=== PATIENT | female | born 1950 | race Caucasian/White ===

== ENCOUNTER 2020-10-06 12:24 | Emergency (ER) | payer OTHER ==
[~2020-10-06] VITALS: Ht 165.1 cm; Wt 66.2 kg
--- NOTE | 2020-10-06 12:40 | NUR ---
BIB [facility] FROM HOME, R ANKLE PAIN SINCE SHE FELL 4 DAYS AGO. PATIENT A/OX4, BREATHING EVEN AND UNLABORED, RIGHT FOOT RESTING ON PILLOW. KEPT IMMOBILIZED AT THIS TIME.
--- NOTE | 2020-10-06 13:38 | NUR ---
paged long distance billing operator for ortho consult. waiting for call back from FRACISCO Delgado
[2020-10-06] MEDS ORDERED: KETOROLAC TROMETHAMINE 15 MG/ML VIAL ONE (13:39)
[2020-10-06] MEDS ORDERED: MORPHINE SULFATE INJ 4 MG/ML DISP.SYRIN ONE (13:39)
[2020-10-06] MEDS: KETOROLAC TROMETHAMINE INJ 30 MG/ML VIAL IM ONE (13:51)
[2020-10-06] MEDS: MORPHINE SULFATE INJ 2 MG/ML DISP.SYRIN IM ONE (13:52)
--- NOTE | 2020-10-06 14:02 | NUR ---
ORTHO PAGED AGAIN.
[2020-10-06] MEDS ORDERED: IBUP-1957 PO (14:12)
[2020-10-06] MEDS ORDERED: OXYC-128 PO (14:12)
--- NOTE | 2020-10-06 14:54 | NUR ---
FROM PREVIOUS RECORDS, DAUGHTER YODIT'S PHONE # [phone], CALLED BUT NO ANSWER. PATIENT HAS A WALKING BOOT ON RIGHT LOWER EXTREMITY. INSTRUCTED NOT TO BEAR WEIGHT ON AFFECTED LEG. Patient discharged to home in stable condition. Written and verbal after care instructions given. Patient verbalizes understanding of instruction.
--- NOTE | 2020-10-06 15:01 | NUR ---
CALLED MULTIPLE NUMBERS FROM PREVIOUS RECORD, STILL UNABLE TO GET A HOLD OF DAUGHTER. PATIENT REFUSING A TAP CARD AT THIS TIME. PATIENT DISCHARGED TO WAITING ROOM. Patient discharged to home in stable condition. Written and verbal after care instructions given. Patient verbalizes understanding of instruction.
[2020-10-06 15:10] VITALS: BP 118/86
== END 2020-10-06 15:11 | disposition home or self-care (01) ==
LOC: ER 12:30
DX: S82.841A Displaced bimalleolar fracture of right lower leg, initial encounter for closed fracture (principal); F32.9 Major depressive disorder, single episode, unspecified; E78.00 Pure hypercholesterolemia, unspecified; F10.10 Alcohol abuse, uncomplicated; Y90.9 Presence of alcohol in blood, level not specified; Z60.2 Problems related to living alone; Z79.899 Other long term (current) drug therapy; W18.39XA Other fall on same level, initial encounter; Y93.89 Activity, other specified; Y92.89 Other specified places as the place of occurrence of the external cause; Y99.8 Other external cause status
CPT/HCPCS: 73610; 73630; 96372 ×2; 99284; J1885; J2270

== ENCOUNTER 2021-02-19 23:52 | Emergency (ER) | payer OTHER, MEDICARE ==
[~2021-02-19] VITALS: Ht 165.1 cm; Wt 66.2 kg
[~2021-02-19 23:52] MED LIST: IBUP-1957 PO; OXYC-128 PO
--- NOTE | 2021-02-19 23:55 | NUR ---
pt bibra c/o left elbow lac s/p glf in closest. Pt aaox4 breathing evenly and unlabored. Pt denies ko or feeling dizzy. Pt attached to monitor and pox. Pt has lac on elbow. Emt at bedside for wound care. Pt given blanket and call light within reach
[2021-02-20] MEDS ORDERED: LIDOCAINE 1%-EPI 1:100,000 20 ML VIAL ONE (00:27)
[2021-02-20] MEDS ORDERED: TDAP [DIPH/PERTUSSIS/TET] 0.5 ML VIAL IM ONE ×2 (00:29→00:30)
[2021-02-20] MEDS ORDERED: LIDOCAINE 1%-EPI 1:100,000 20 ML VIAL TP ONE (00:30)
--- NOTE | 2021-02-20 00:58 | NUR ---
at bedside for stitches
[2021-02-20] MEDS ORDERED: CEPH250C PO (01:35)
--- NOTE | 2021-02-20 02:29 | NUR ---
Patient discharged to home in stable condition. Written and verbal after care instructions given. Patient verbalizes understanding of instruction. Pt ambulatory with a steady gait.
[2021-02-20 03:03] VITALS: BP 103/68
== END 2021-02-20 02:29 | disposition home or self-care (01) ==
LOC: ER 23:54
DX: S41.112A Laceration without foreign body of left upper arm, initial encounter (principal); S51.012A Laceration without foreign body of left elbow, initial encounter; F32.9 Major depressive disorder, single episode, unspecified; Z60.2 Problems related to living alone; W01.0XXA Fall on same level from slipping, tripping and stumbling without subsequent striking against object, initial encounter; Y93.89 Activity, other specified; Y92.098 Other place in other non-institutional residence as the place of occurrence of the external cause; Y99.8 Other external cause status
CPT/HCPCS: 12005; 73080; 90471; 90715; 99283; J3490

== ENCOUNTER 2022-01-23 17:09 | Emergency (ER) | payer OTHER ==
[~2022-01-23] VITALS: Ht 167.6 cm; Wt 70.3 kg
[~2022-01-23 17:09] MED LIST changes: +CEPH250C PO
--- NOTE | 2022-01-23 17:32 | NUR ---
TO ER BED 3. COMPLAINT OF BACK/RIB PAIN. S/P FALL LAST SUNDAY PER PATIENT, VERBALIZED DIZZINESS/WEAKNESS.
--- NOTE | 2022-01-23 17:33 | NUR ---
DR. PHELAN AT BEDSIDE TO SEE PATIENT.
--- NOTE | 2022-01-23 17:35 | NUR ---
EKG AT BEDSIDE.
--- NOTE | 2022-01-23 17:55 | NUR ---
IV LINE ESTABLISHED AT LAC #18, BLOOD DRAWN/COLLECTED AND SENT TO LAB; LINE SALINE LOCKED.
--- NOTE | 2022-01-23 18:00 | NUR ---
PT TAKEN TO RADIOLOGY VIA [facility]
[2022-01-23 18:04] LABS: BASOPHILS % (AUTO) 0.5 % (0.0-2.0); EOSINOPHILS % (AUTO) 3.6 % (0.0-6.0); HEMATOCRIT 33 % (33-45); HEMOGLOBIN 10.8 g/dL (11.5-14.8); LYMPHOCYTES # (AUTO) 2.5 K/uL (0.8-4.8); LYMPHOCYTES % (AUTO) 32.1 % (20.0-44.0); MEAN CORPUSCULAR HGB CONC 33 g/dl (31.0-36.0); MEAN CORPUSCULAR VOLUME 80 fL (82-100); MONOCYTES # (AUTO) 0.6 K/uL (0.1-1.30); MONOCYTES % (AUTO) 7.9 % (2.0-12.0); NEUTROPHILS # (AUTO) 4.4 K/uL (1.8-8.9); NEUTROPHILS % (AUTO) 55.9 % (43.0-81.0); PLATELET COUNT (AUTO) 372 K/uL (150-450); RED BLOOD CELL COUNT(AUTO) 4.11 MIL/uL (4.0-5.2); WHITE BLOOD COUNT (AUTO) 7.9 K/uL (4.3-11.0)
--- NOTE | 2022-01-23 18:10 | NUR ---
PT RETURNED FROM RADIOLOGY
[2022-01-23 18:23] LABS: ALBUMIN 3.7 g/dL (3.4-5.0); BILIRUBIN,DIRECT 0.1 mg/dL (0.0-0.2); BILIRUBIN,TOTAL 0.4 mg/dL (0.2-1.0); CALCIUM, SERUM 9.1 mg/dL (8.5-10.1); CREATININE 0.6 mg/dL (0.6-1.3); POTASSIUM 3.9 mmol/L (3.5-5.1); TOTAL PROTEIN, SERUM 7.5 g/dL (6.4-8.2)
[2022-01-23] MEDS ORDERED: HYDROCODONE/APAP 10/325MG TABLET PO ONE (19:00)
[2022-01-23] MEDS ORDERED: HYDROCODONE/APAP 10/325MG TABLET ONE (19:06)
[2022-01-23] MEDS ORDERED: HYDR-3980 PO (19:39)
--- NOTE | 2022-01-23 20:07 | NUR ---
Patient discharged to home in stable condition with walker. RX Written and verbal after care instructions given. Patient verbalizes understanding of instruction. IV removed. Catheter intact and site benign. Pressure and 4x4 applied to site. No bleeding noted. PT ambulatory with a steady gait with walker
[2022-01-23 20:08] VITALS: BP 126/85
== END 2022-01-23 20:09 | disposition home or self-care (01) ==
LOC: ER 17:11
DX: S22.41XA Multiple fractures of ribs, right side, initial encounter for closed fracture (principal); S40.021A Contusion of right upper arm, initial encounter; R51.9 Headache, unspecified; R55 Syncope and collapse; F32.A Depression, unspecified; E78.00 Pure hypercholesterolemia, unspecified; Z60.2 Problems related to living alone; Z79.899 Other long term (current) drug therapy; W18.30XA Fall on same level, unspecified, initial encounter; Y93.89 Activity, other specified; Y92.009 Unspecified place in unspecified non-institutional (private) residence as the place of occurrence of the external cause; Y99.8 Other external cause status
CPT/HCPCS: 36415; 70450-TC; 71045-TC; 71100-TC; 73060-TC; 80048-TC; 80076-TC; 82962-TC; 85025-TC; 85730-TC